=== PATIENT | female | born 1980 | race Caucasian/White ===

== ENCOUNTER → 2018-09-11 | Outpatient (CLI) | payer OTHER | LOC: CIMAGING 07:17 | PROVIDERS: ATTEND Obstetrics & Gynecology Reproductive Endocrinology | DX: Q51.4 Unicornate uterus (principal) | CPT/HCPCS: 76770-PO ==

== ENCOUNTER → 2018-09-29 | Outpatient (CLI) | payer OTHER | LOC: FIMAGING 11:05 | DX: Z31.69 Encounter for other general counseling and advice on procreation (principal); Q51.4 Unicornate uterus; Z85.3 Personal history of malignant neoplasm of breast ==